=== PATIENT | male | born 1950 | race African-American/Black ===

== ENCOUNTER 2017-06-07 12:32 | Emergency (ER) | payer BC, MEDICARE ==
[2017-06-07 13:36] LABS: Basophils % (Auto) 0.5 % (0.0-1.8); Eosinophils % (Auto) 4.9 % (0.0-4.3); Hematocrit 45.4 % (35.5-45.6); Hemoglobin 14.9 gm/dl (11.8-15.2); Mean Corpuscular HGB Conc 33 % (32-34); Mean Corpuscular Hemoglobin 31 pg (28-32); Mean Corpuscular Volume 93 fl (84-94); Platelet Count 232 K/mm3 (140-440); Red Blood Count 4.89 M/mm3 (3.65-5.03); Red Cell Distribution Width 12.8 % (13.2-15.2)
[2017-06-07 13:54] LABS: Anion Gap 20 mmol/L; BUN/Creatinine Ratio 16.66; Blood Urea Nitrogen 15 mg/dL (9-20); Calcium 8.4 mg/dL (8.4-10.2); Carbon Dioxide 23 mmol/L (22-30); Chloride 100.3 mmol/L (98-107); Glucose 162 mg/dL (75-100); Potassium 3.9 mmol/L (3.6-5.0); Sodium 139 mmol/L (137-145)
[2017-06-07] MEDS ORDERED: ZOFRAN IV ONE (18:22)
[2017-06-07] MEDS ORDERED: NACL 0.9% 1000 ML 1,000 ML IV ONE (18:22)
[2017-06-07 18:28] LABS: Bilirubin,Urine NEG (Negative); Blood,Urine NEG (Negative); Ketones,Urine NEG (Negative); Leukocyte Esterase,Urine NEG (Negative); Mucus,Urine FEW /HPF; Nitrite,Urine NEG (Negative); Protein,Urine <15 mg/dL mg/dL (Negative); Urobilinogen,Urine < 2.0 mg/dL (<2.0); WBC,Urine < 1.0 /HPF (0.0-6.0)
[2017-06-07] MEDS ORDERED: ANTIVERT PO ONE (18:43)
[2017-06-07 18:58] LABS: Alanine Aminotransferase 13 units/L (7-56); Albumin 3.8 g/dL (3.9-5); Albumin/Globulin Ratio 0.9 %; Alkaline Phosphatase 86 units/L (35-129)
[2017-06-07 18:59] LABS: Bilirubin,Direct < 0.2 mg/dL (0-0.2); Bilirubin,Indirect 0.4 mg/dL
--- NOTE | 2017-06-07 19:46 | Cat Scan Report ---
FINAL REPORT PROCEDURE: CT HEAD/BRAIN WO CON TECHNIQUE: Computerized tomography of the head was performed without contrast material. HISTORY: headache, dizziness COMPARISON: No prior studies are available for comparison. FINDINGS: Skull and scalp: Normal. Paranasal sinuses: Mucosal thickening is noted involving right maxillary, bilateral ethmoid sinuses. Air-fluid levels are noted in the right sphenoid and right maxillary sinuses.. Ventricles and subarachnoid spaces: Are prominent consistent with cerebral atrophy. Cerebrum: No evidence of hemorrhage, acute infarction or mass . Cerebellum and brainstem: No evidence of hemorrhage, acute infarction or mass. Vasculature: Normal. Comments: None. IMPRESSION: No acute intracranial abnormality. Cerebral atrophy appropriate for patient's age. Acute right maxillary and right sphenoids sinusitis.
[2017-06-07 19:55] VITALS: BP 152/88
--- NOTE | 2017-06-07 20:04 | Emergency Department Report ---
HPI - General Chief Complaint: Nausea/Vomiting/Diarrhea Time Seen by Provider: 06/07/17 18:18 - HPI HPI: patient is brought to er by family member, including son who is translating at bedside. family members state that patient has been feeling dizzy, for the past two days but worse today. patient states the quality as the room is spinning around him. Patient describes symptoms at 8 out of 10 in severity. Symptoms are constant, patient denies any modifiers. No exacerbating or alleviating factors. Dizziness is accompanied by facial pain, sharp maxillary area, 6 out of 10 without fever or nasal discharge. Patient has not taking any medications for his symptoms. he does have a history of hypertension and stated that he is compliant with his medications. ED Past Medical Hx - Past Medical History Previous Medical History?: Yes Hx Hypertension: Yes - Surgical History Past Surgical History?: No - Social History Smoking Status: Never Smoker Substance Use Type: None - Medications Home Medications: Home Medications Medication Instructions Recorded Confirmed Last Taken Type Amoxicillin/K Clav Tab [Augmentin 1 tab PO Q12HR #20 tab 06/07/17 Unknown Rx 875 mg] Meclizine [Antivert] 25 mg PO TID PRN #30 tablet 06/07/17 Unknown Rx ED Review of Systems ROS: Stated complaint: NAUSEA Other details as noted in HPI Comment: All other systems reviewed and negative Constitutional: chills, weakness ENT: congestion Respiratory: no symptoms reported Cardiovascular: as per HPI Endocrine: no symptoms reported Gastrointestinal: as per HPI Genitourinary: as per HPI Musculoskeletal: as per HPI Neurological: headache, other (dizziness) Physical Exam - Physical Exam Vital Signs: Vital Signs 06/07/17 06/07/17 06/07/17 12:38 17:48 18:00 Temperature 97.6 F Pulse Rate 64 57 L Respiratory 20 18 20 Rate Blood Pressure 129/85 O2 Sat by Pulse 100 98 Oximetry 06/07/17 06/07/17 06/07/17 18:16 18:30 18:45 Temperature Pulse Rate 63 65 67 Respiratory 18 19 17 Rate Blood Pressure 147/90 O2 Sat by Pulse 97 97 98 Oximetry 06/07/17 06/07/17 06/07/17 19:00 19:15 19:30 Temperature Pulse Rate 62 60 Respiratory 17 17 Rate Blood Pressure 146/85 152/88 152/88 O2 Sat by Pulse 98 98 99 Oximetry 06/07/17 19:46 Temperature Pulse Rate Respiratory Rate Blood Pressure 152/88 O2 Sat by Pulse 98 Oximetry Physical Exam: - Physical Exam - General Limitations: No Limitations General appearance: alert, in no apparent distress, obese - Head Head exam: Present: atraumatic, normocephalic - Eye Eye exam: Present: normal appearance - ENT ENT exam: Present: mucous membranes moist Maxillary sinusitis tender to the touch. - Neck Neck exam: Present: normal inspection - Respiratory Respiratory exam: Present: normal lung sounds bilaterally. Absent: respiratory distress - Cardiovascular Cardiovascular Exam: Present: normal rhythm, tachycardia. Absent: systolic murmur, diastolic murmur, rubs, gallop - GI/Abdominal GI/Abdominal exam: Present: soft, normal bowel sounds - Extremities Exam Extremities exam: Present: normal inspection - Back Exam Back exam: Present: normal inspection - Neurological Exam Neurological exam: Present: alert, oriented X3 - Psychiatric Psychiatric exam: normal affect and mood - Skin Skin exam: Present: warm, dry, intact, normal color. Absent: rash ED Course Vital Signs 06/07/17 06/07/17 06/07/17 12:38 17:48 18:00 Temperature 97.6 F Pulse Rate 64 57 L Respiratory 20 18 20 Rate Blood Pressure 129/85 O2 Sat by Pulse 100 98 Oximetry 06/07/17 06/07/17 06/07/17 18:16 18:30 18:45 Temperature Pulse Rate 63 65 67 Respiratory 18 19 17 Rate Blood Pressure 147/90 O2 Sat by Pulse 97 97 98 Oximetry 06/07/17 06/07/17 06/07/17 19:00 19:15 19:30 Temperature Pulse Rate 62 60 Respiratory 17 17 Rate Blood Pressure 146/85 152/88 152/88 O2 Sat by Pulse 98 98 99 Oximetry 06/07/17 19:46 Temperature Pulse Rate Respiratory Rate Blood Pressure 152/88 O2 Sat by Pulse 98 Oximetry ED Medical Decision Making - Lab Data Result diagrams: 06/07/17 12:50 06/07/17 12:50 Critical care attestation.: If time is entered above; I have spent that time in minutes in the direct care of this critically ill patient, excluding procedure time. ED Disposition Clinical Impression: Dizziness Acute sinusitis Qualifiers: Sinusitis location: maxillary Recurrence: non-recurrent Qualified Code(s): J01.00 - Acute maxillary sinusitis, unspecified Disposition: DC-01 TO HOME OR SELFCARE Is pt being admited?: No Does the pt Need Aspirin: No Condition: Fair Instructions: Sinusitis (ED), Dizziness (ED) Prescriptions: Amoxicillin/K Clav Tab [Augmentin 875 mg] 1 tab PO Q12HR #20 tab Meclizine [Antivert] 25 mg PO TID PRN #30 tablet PRN Reason: Vertigo Referrals: PRIMARY CARE, [Primary Care Provider] - 3-5 Days
== END 2017-06-07 20:19 | disposition home or self-care (01) ==
LOC: ED 12:32
DX: J01.00 Acute maxillary sinusitis, unspecified (principal); R42 Dizziness and giddiness; R51 Headache; I10 Essential (primary) hypertension
CPT/HCPCS: 36415; 70450; 80048; 80074; 81001; 82962; 85025; 96361; 96374; 99284; J2405; J7030